=== PATIENT | male | born 1940 | race Caucasian/White ===

== ENCOUNTER 2018-11-19 05:31 | Day surgery (SDC) | payer OTHER, MEDICARE ==
[~2018-11-19] VITALS: Ht 182.9 cm; Wt 113.4 kg
[~2018-11-19 05:31] MED LIST: CARVEDILOL12.5 MG PO; CENTRUM SILVER1 EAC2 PO; ESCITALOPRAM OX20 MG PO; FINASTERIDE5 MG PO; LIPITOR80 MG PO; LOSARTAN-HCTZ1 EAC1 PO; PACERONE 200 M200 M1 PO; PRADAXA150 MG PO; VITAMIN D1000 UNI2 PO; ZETIA10 MG PO
[2018-11-19 10:15] VITALS: BP 129/56
--- NOTE | 2018-11-23 06:14 | O ---
[facility] [place] [address] OPERATIVE REPORT Name: SNEHA MIRANDA Room #: DEP [facility].#: [id number] Admission: 11/19/18 ������������������ Attend Phys: Angel Lala MD Discharge: 11/19/18 ������������������ Date of : 44 Report #: [id number] THIS REPORT FOR: //name// CC: Chema Vasques MD [facility] Angel Lala DATE OF SERVICE: 11/19/2018 OVERHEAD DOOR TECHNICIAN: None. PREOPERATIVE DIAGNOSIS: Bilateral lower lid entropion. POSTOPERATIVE DIAGNOSIS: Bilateral lower lid entropion. OPERATION PERFORMED: Bilateral lower lid entropion repair. ANESTHESIA: Local with IV sedation. COMPLICATIONS: None. INDICATIONS FOR PROCEDURE: This patient has bilateral lower lid entropion with chronic irritation and discharge. The current procedures are being undertaken in order to improve the patient's level of comfort and visual function. Informed consent was obtained to include but not limited to the loss of vision, bleeding, infection, scarring, failure to improve the problem and need for further surgery. DESCRIPTION OF OPERATION: The patient was taken to the operating room, where 2% Xylocaine with epinephrine mixed with equal parts of 0.75% Marcaine with Wydase was administered transcutaneously and transconjunctivally to each lower lid and lateral canthal area. The patient was then prepped and draped in the usual sterile fashion. A Aubrie clamp was used to clamp the left lateral canthus, following which a sharp canthotomy and cantholysis were performed. Hemostasis was achieved with a monopolar cautery, as it was throughout the case. A tarsal strip was prepared laterally, removing the lash bearing portion of the redundant lid margin and the redundant tarsal plate. A transconjunctival dissection was then undertaken just inferior to the lower border of the tarsal plate. The lower lid retractors were disinserted from the inferior border of the tarsal plate. The lower lid retractors were then advanced and reattached to the anterior surface of the tarsal plate with mattress 5-0 chromic sutures passed transconjunctivally and secured in the infraciliary margin. The tarsal strip was then secured laterally with 2 interrupted 5-0 Prolene sutures. The [address] [address] OPERATIVE REPORT Name: RUTHSNEHA ANTIONETTE Room #: DEP [facility].#: [id number] Admission: 11/19/18 ������������������ Attend Phys: Angel Lala MD Discharge: 11/19/18 ������������������ Date of : 44 Report #: [id number] subcutaneous structures and the skin were then closed with multiple interrupted 6-0 plain gut sutures so the lateral canthal angle was sharply reformed. The wounds were then cleaned and dressed with ophthalmic antibiotic ointment. The patient was then transported to the recovery area, having tolerated the procedure well with no anesthetic or operative complications being noted. ��������������������������������������������� <ELECTRONICALLY SIGNED> ���������������������������������������� By: Angel Lala MD ��������������������������������������������� 11/23/18 0614 Angel Lala MD /gianna
== END 2018-11-19 10:10 | disposition home or self-care (01) ==
LOC: OR 05:31 → TBA 05:31 → OR 06:16
DX: H02.005 Unspecified entropion of left lower eyelid (principal); H02.002 Unspecified entropion of right lower eyelid; I10 Essential (primary) hypertension; I48.91 Unspecified atrial fibrillation; E78.5 Hyperlipidemia, unspecified; G47.33 Obstructive sleep apnea (adult) (pediatric); F32.9 Major depressive disorder, single episode, unspecified; Z79.01 Long term (current) use of anticoagulants; Z79.899 Other long term (current) drug therapy; Z98.890 Other specified postprocedural states
CPT/HCPCS: 50010; 50101; 50386; 50398; 51636; 56527; 56531; 62110; 62850; 70005

== ENCOUNTER 2018-12-20 11:08 | Emergency (ER) | payer OTHER, MEDICARE ==
[~2018-12-20] VITALS: Ht 182.9 cm; Wt 113.4 kg
[2018-12-20] MEDS ORDERED: KEFLEX500 M1 PO (13:34)
[2018-12-20 14:20] VITALS: BP 187/88
== END 2018-12-20 14:21 | disposition home or self-care (01) ==
LOC: ER 11:08
DX: S51.012A Laceration without foreign body of left elbow, initial encounter (principal); M70.22 Olecranon bursitis, left elbow; I10 Essential (primary) hypertension; E78.5 Hyperlipidemia, unspecified; I48.91 Unspecified atrial fibrillation; G47.30 Sleep apnea, unspecified; F32.9 Major depressive disorder, single episode, unspecified; W18.39XA Other fall on same level, initial encounter; Y93.89 Activity, other specified; Y92.89 Other specified places as the place of occurrence of the external cause; Y99.8 Other external cause status

== ENCOUNTER → 2019-08-25 | Outpatient (CLI) | payer OTHER, MEDICARE ==
[~2019-08-25] MED LIST changes: +KEFLEX500 M1 PO
== END | disposition home or self-care (01) ==
LOC: SJCVCIMAG 07:29
DX: I08.3 Combined rheumatic disorders of mitral, aortic and tricuspid valves (principal); I27.20 Pulmonary hypertension, unspecified; I25.10 Atherosclerotic heart disease of native coronary artery without angina pectoris; E78.5 Hyperlipidemia, unspecified; I10 Essential (primary) hypertension; I48.91 Unspecified atrial fibrillation; Z79.899 Other long term (current) drug therapy

== ENCOUNTER → 2020-04-28 | Outpatient (CLI) | payer OTHER, MEDICARE | LOC: SJCVC 14:47 | PROVIDERS: ATTEND Internal Medicine Cardiovascular Disease | DX: I48.0 Paroxysmal atrial fibrillation (principal); I12.9 Hypertensive chronic kidney disease with stage 1 through stage 4 chronic kidney disease, or unspecified chronic kidney disease; N18.4 Chronic kidney disease, stage 4 (severe); E78.00 Pure hypercholesterolemia, unspecified; I34.1 Nonrheumatic mitral (valve) prolapse; D68.59 Other primary thrombophilia; I25.10 Atherosclerotic heart disease of native coronary artery without angina pectoris; Z79.899 Other long term (current) drug therapy; Z82.49 Family history of ischemic heart disease and other diseases of the circulatory system ==